=== PATIENT | male | born 1965 | race Caucasian/White ===

== ENCOUNTER 2016-07-21 05:59 | Emergency (ER) | payer OTHER ==
[~2016-07-21] VITALS: Ht 175.3 cm; Wt 97.3 kg
[2016-07-21 06:02] VITALS: TEMP 36.6; Ht 175.3 cm; Wt 97.3 kg
[2016-07-21] MEDS ORDERED: LORAZEPAM 1 MG TAB PO STA (06:38)
[2016-07-21] MEDS ORDERED: HYDROmorphone INJ 2 MG/ML SYR/VIAL IM PRN (06:45)
--- NOTE | 2016-07-21 06:52 | EMERGENCY ROOM VISIT NOTE ---
History Report prepared by Pelon: Sheila Whitman Under the Supervision of: Dr. Christiano Garcia D.O. First contact with patient: 06:20 Chief Complaint: BACK PAIN Stated Complaint: SEVERE BACK PAIN AND SPASMS History of Present Illness The patient is a 51 year old male who presents to the Emergency Room with complaints of constant lower back pain beginning yesterday. The patient states that a tree limb fell down and landed on him. He reports that the tree limb was about 85 pounds and 4 feet long. He complains of groin pain, leg pain, and hip pain. The patient notes that he did not take his medications this morning that include blood pressure medication. He states that he slept in the shower last night and that worsened his symptoms. The patient reports that he has been able to walk. Source of History: patient Onset: yesterday Position: back (lower) Timing: constant Modifying Factors (Worsening): other (sleeping in the shower) Note: Pt complains of hip pain, leg pain, and groin pain. Review of Systems See above for pertinent positives & negatives. A total of 10 systems reviewed and were otherwise negative. Past Medical & Surgical Medical Problems: (1) Hypertension Family History No pertinent family history stated. Social History Smoking Status: Never Smoker Smokeless Tobacco Use: No Alcohol Use: none Drug Use: none Marital Status: Housing Status: lives with significant other Occupation Status: retired Current/Historical Medications Scheduled Amlodipine (Norvasc), 10 MG PO DAILY Ascorbic Acid (Ascorbic Acid), 1,000 MG PO DAILY B-Complex Vitamins (Vitamin B Complex), 1 TAB PO DAILY Chlorthalidone (Chlorthalidone), 1 TAB PO DAILY Cholecalciferol (Vitamin D 1000 Unit), 1,000 INTER.UNIT PO DAILY Glucosamine Sulfate (Glucosamine), 2,000 MG PO DAILY Hydrocodon/Acetaminophen 5MG/300MG (Vicodin (5MG/300MG)), 1-2 TAB PO Q6H Levothyroxine Sodium (Levothyroxine Sodium), 1 TAB PO DAILY Lisinopril (Zestril), 40 MG PO DAILY Naproxen Sodium (Naproxen Sodium), 220 MG PO AMPM Ranitidine (Zantac), 150 MG PO BID Tamsulosin Hcl (Flomax), 0.4 MG PO DAILY Scheduled PRN Diazepam (Valium), 1-2 TAB PO TID PRN for Muscle Spasms Ibuprofen Tab (Motrin), 800 MG PO Q8H PRN for Pain Lidocaine (Lidoderm Patch 5%), 1 PATCH TD QD PRN for Pain Allergies Coded Allergies: Penicillins (Verified Allergy, Severe, shock, 07/21/16) Physical Exam Vital Signs Date Time Temp Pulse Resp B/P Pulse Ox O2 Delivery O2 Flow Rate FiO2 07/21/16 06:02 36.6 73 20 127/73 97 Room Air Physical Exam GENERAL: Patient is well appearing and in pain. HEENT: No acute trauma, normocephalic atraumatic, mucous membranes moist, no nasal congestion, no scleral icterus. NECK: No stridor, no adenopathy, no meningismus, trachea is midline. LUNGS: No dyspnea. Clear to auscultation and equal bilaterally. No wheeze, no rhonchi. HEART: Regular rate and rhythm. No murmurs, rubs, gallops appreciated. ABDOMEN: Soft, nontender, bowel sounds positive, no masses appreciated, no peritonitis. BACK: Ecchymosis to the right lumbar spine. EXTREMITIES: Extensive ecchymosis to the upper thigh and hip. Limited range of motion secondary to pain. NEUROLOGIC: Alert and oriented, no acute motor or sensory deficits, no focal weakness, cranial nerves grossly intact. SKIN: No rash, no jaundice, no diaphoresis. Medical Decision & Procedures ER Provider Diagnostic Interpretation: X ray results and stated below per my interpretation and radiologist interpretation. RIGHT PELVIS/UNILATERAL HIP 2-3VIEWS FINDINGS: No fracture or dislocation within the pelvis or hips. The sacrum appears intact. Soft tissues are unremarkable. IMPRESSION: No fracture or dislocation within the pelvis or hips. Electronically signed by: Kole Cortes M.D. 07/21/2016 7:24 AM Dictated Date/Time: 07/21/2016 7:21 AM LUMBAR SPINE 2 OR 3 VIEWS FINDINGS: There is no pathologic bowel dilatation. No acute fractures or traumatic subluxations are visualized. IMPRESSION: No fractures or subluxations identified. Electronically signed by: Vernon Ramos M.D. 07/21/2016 7:40 AM Dictated Date/Time: 07/21/2016 7:39 AM Laboratory Results Laboratory results as reviewed by me. Medications Administered Medications (Trade) Dose Ordered Sig/Duc Route Start Time Stop Time Status Last Admin Dose Admin Hydromorphone HCl (Dilaudid Inj) 2 mg ONE PRN IM 07/21/16 06:45 08/04/16 06:44 07/21/16 06:48 2 MG Lorazepam (Ativan Tab) 1 mg NOW STAT PO 07/21/16 06:38 07/21/16 06:41 DC 07/21/16 06:47 1 MG ED Course 0631: The patient was evaluated in room B5. A complete history and physical exam was performed. 0638: Ativan Tab 1mg PO. 0645: Dilaudid Inj 2mg PRN IM pain. 0729: Reviewed both of the radiology films and the radiology report. 0802: I reevaluated and updated the patient. He is improved and is in mild to moderate pain. He is nauseous and will receive Zofran and greta joseline before being discharge home. He rates his pain as a 5/10 in severity. 0812: Zofran Odt 4mg PO. 0830: Ondansetron HCl 1 homepack PO. 0832: Reevaluated the patient. Discussed results and discharge instructions: He verbalized understanding and agreement. The patient is ready for discharge. Medical Decision Differential diagnoses include fracture, spasm, strain, sprain. 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 He reports that he slipped in the shower last night and has had exquisite back spasms and back pain preventing his sleep. He drove himself to the emergency room today for further evaluation. He has been ambulating on the lower extremity since the initial injury approximately 3 days ago. Physical exam the patient is kneeling in the room in a position of comfort, he has extensive ecchymoses over the right lateral hip greater trochanter and lower lumbar region. His will be coming to pick him up, he was treated with 2 mg IM Dilaudid, 1 mg Ativan by mouth, lumbar x-rays and hip and pelvis x-rays were obtained to exclude fracture. [place] Drug Monitoring Program Search Results: patient reviewed within database, no issues identified Impression Primary Impression: Strain of lumbar region Additional Impressions: Acute back pain less than 4 weeks duration Acute low back pain due to trauma Scribe Attestation The scribe's documentation has been prepared under my direction and personally reviewed by me in its entirety. I confirm that the note above accurately reflects all work, treatment, procedures, and medical decision making performed by me. Departure Information Dispostion Home / Self-Care Prescriptions Hydrocodon/Acetaminophen 5MG/300MG (VICODIN (5MG/300MG)) 1 Tab Tab 1-2 TAB PO Q6H, #14 TAB Prov: Christiano Garcia D.Byron 07/21/16 Lidocaine (Lidoderm Patch 5%) 1 Ea Tdsy 1 PATCH TD QD Y for Pain, #5 PATCH Prov: Christiano Garcia D.O. 07/21/16 Diazepam (VALIUM) 5 Mg Tab 1-2 TAB PO TID Y for Muscle Spasms, #14 TAB Prov: Christiano Garcia D.OGabriele 07/21/16 Ibuprofen Tab (MOTRIN) 800 Mg Tab 800 MG PO Q8H Y for Pain, #30 TAB Prov: Christiano Garcia D.Byron 07/21/16 Referrals No Doctor, Assigned (PCP) Forms HOME CARE DOCUMENTATION FORM, IMPORTANT VISIT INFORMATION Patient Instructions Back Pain - [facility], Back Safety Bending, My [facility] Additional Instructions Return for pain shooting down into the groin, loss of control of her bowel or bladder, fever or chills, or any other concerns. Follow-up with your primary doctor this week or next if you're not improving. Ice to the area for the first 24 hours (not directly on the skin) 15 minutes on 15 minutes off After 24 hours moist heat and ice alternating are also acceptable. Problem Qualifiers
[2016-07-21] MEDS ORDERED: TAMS0.4C38 PO (06:59)
[2016-07-21] MEDS ORDERED: IBUP-1451 PO (07:14)
[2016-07-21] MEDS ORDERED: DIAZ5TAB3 PO (07:14)
[2016-07-21] MEDS ORDERED: NF656 TD (07:15)
--- NOTE | 2016-07-21 07:25 | DIAGNOSTIC IMAGING REPORT ---
RIGHT PELVIS/UNILATERAL HIP 2-3VIEWS CLINICAL HISTORY: trauma Right. Fall. Right hip pain. COMPARISON STUDY: None. FINDINGS: No fracture or dislocation within the pelvis or hips. The sacrum appears intact. Soft tissues are unremarkable. IMPRESSION: No fracture or dislocation within the pelvis or hips. Electronically signed by: Kole Cortes M.D. 07/21/2016 7:24 AM Dictated Date/Time: 07/21/2016 7:21 AM
--- NOTE | 2016-07-21 07:41 | DIAGNOSTIC IMAGING REPORT ---
LUMBAR SPINE 2 OR 3 VIEWS CLINICAL HISTORY: Back pain status post trauma COMPARISON STUDY: No previous studies for comparison. FINDINGS: There is no pathologic bowel dilatation. No acute fractures or traumatic subluxations are visualized. IMPRESSION: No fractures or subluxations identified. Electronically signed by: Vernon Ramos M.D. 07/21/2016 7:40 AM Dictated Date/Time: 07/21/2016 7:39 AM
[2016-07-21] MEDS ORDERED: HYDR-3419 PO (08:11)
[2016-07-21] MEDS ORDERED: ONDANSETRON 4MG OD TAB PO STA (08:12)
[2016-07-21] MEDS ORDERED: ONDANSETRON HOME PACK 4MG OD TAB PO ONE (08:30)
[2016-07-21 08:36] VITALS: BP 125/76; PULSE 82; O2SAT 98
[2017-01-08] MEDS ORDERED: ZNTT/150 PO (06:58)
[2017-01-08] MEDS ORDERED: LEVO25TA5 PO (06:58)
[2017-01-08] MEDS ORDERED: LISI40TA PO (06:59)
[2017-01-08] MEDS ORDERED: AMLO-114 PO (06:59)
[2017-01-08] MEDS ORDERED: B-COTAB18 PO (07:00)
[2017-01-08] MEDS ORDERED: ASCO100061 PO (07:00)
[2017-01-08] MEDS ORDERED: NAPR1CAP7 PO (07:01)
[2017-01-08] MEDS ORDERED: CHOL100027 PO (07:03)
[2017-01-08] MEDS ORDERED: GLUC10007 PO (07:03)
[2017-01-08] MEDS ORDERED: HYG25 PO (07:04)
== END 2016-07-21 08:33 | disposition home or self-care (01) ==
LOC: C.EDB 06:01
DX: S39.012A Strain of muscle, fascia and tendon of lower back, initial encounter (principal); W22.8XXA Striking against or struck by other objects, initial encounter; I10 Essential (primary) hypertension

== ENCOUNTER 2017-01-08 13:36 | Emergency (ER) | payer OTHER ==
[~2017-01-08] VITALS: Ht 175.3 cm; Wt 97.0 kg
[~2017-01-08 13:36] MED LIST: AMLO-114 PO; ASCO100061 PO; B-COTAB18 PO; CHOL100027 PO; GLUC10007 PO; HYDR-3419 PO; HYG25 PO; IBUP-1451 PO; LEVO25TA5 PO; LISI40TA PO; NAPR1CAP7 PO; NF656 TD; TAMS0.4C38 PO; ZNTT/150 PO
[2017-01-08 13:40] VITALS: TEMP 36.7; Ht 175.3 cm; Wt 97.0 kg
[2017-01-08] MEDS ORDERED: EPINEPHRINE ADULT AUTO-INJECT 0.3 MG SYR IM STA (13:51)
[2017-01-08] MEDS ORDERED: DiphenhydrAMINE HCL 50 MG/ML VIAL IV STA (13:51)
[2017-01-08] MEDS ORDERED: RANITIDINE HCL 50 MG/100 ML D5W IV STA (13:51)
[2017-01-08] MEDS ORDERED: METHYLPREDNISOLONE 125 MG VIAL IV STA (13:51)
--- NOTE | 2017-01-08 13:56 | EMERGENCY ROOM VISIT NOTE ---
History First contact with patient: 13:46 Chief Complaint: ALLERGIC REACTION Stated Complaint: STUNG BY BEES History of Present Illness The patient is a 51 year old male who presents to the Emergency Room with complaints of an allergic reaction to bee stings that occurred approximately 20 minutes prior to arrival. The patient thinks that he was stung by yellow jackets when he accidentally stepped on the nest. He was stung on the right side of his face. 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 He typically carries an EpiPen with him. He did not have the pen with him today. He is currently complaining of severe itching. He denies any difficulty breathing or difficulty swallowing. He denies any dizziness. Review of Systems 10 system review performed and negative unless noted in HPI or below Past Medical/Surgical History Medical Problems: (1) Hypertension Family History Heart disease Social History Smoking Status: Never Smoker Alcohol Use: none Drug Use: none Marital Status: Housing Status: lives with significant other Occupation Status: retired Current/Historical Medications Scheduled Amlodipine (Norvasc), 10 MG PO DAILY Ascorbic Acid (Ascorbic Acid), 1,000 MG PO DAILY B-Complex Vitamins (Vitamin B Complex), 1 TAB PO DAILY Chlorthalidone (Chlorthalidone), 1 TAB PO DAILY Cholecalciferol (Vitamin D 1000 Unit), 1,000 INTER.UNIT PO DAILY Epinephrine (Epipen 2-Elvin), 1 DOSE IM DAILY Glucosamine Sulfate (Glucosamine), 2,000 MG PO DAILY Levothyroxine Sodium (Levothyroxine Sodium), 1 TAB PO DAILY Lisinopril (Zestril), 40 MG PO DAILY Naproxen Sodium (Naproxen Sodium), 220 MG PO AMPM Prednisone (Prednisone), 50 MG PO DAILY Ranitidine (Zantac), 150 MG PO BID Physical Exam Vital Signs Date Time Temp Pulse Resp B/P (MAP) Pulse Ox O2 Delivery O2 Flow Rate FiO2 01/08/17 17:20 87 18 166/95 98 Room Air 01/08/17 16:29 96 20 125/66 95 Room Air 01/08/17 14:38 109 16 95 Room Air 01/08/17 14:12 113 01/08/17 14:08 97 Room Air 01/08/17 13:40 36.7 112 20 140/85 95 Room Air Physical Exam VITALS: Vitals are noted on the nurse's note and reviewed by myself. Vital signs stable. GENERAL: 51-year-old male, in no acute distress, nondiaphoretic, well-developed well-nourished. SKIN: The skin was warm and dry HEAD: Slight area of facial swelling anterior to the right ear. A few small areas of erythema noted. No other rashes EARS: External auditory canals clear, tympanic membranes pearly estrada without erythema or effusion bilaterally. EYES: Conjunctivae without injection, sclerae without icterus. Extraocular movements intact. NOSE: Patent, turbinates without inflammation or discharge. No sinus tenderness. MOUTH: Mucous membranes moist. No swelling of the oropharynx Tonsils are not enlarged. Pharynx without erythema or exudate. Uvula midline. Airway patent. Tongue does not deviate. NECK: Supple without nuchal rigidity. No lymphadenopathy. Cervical spine is nontender. No JVD. HEART: Tachycardic, regular rhythm without murmurs gallops or rubs. LUNGS: Clear to auscultation bilaterally without wheezes, rales or rhonchi. No accessory muscle use. ABDOMEN: Positive bowel sounds x 4.Soft, nontender, without organomegaly. No guarding or rebound tenderness. MUSCULOSKELETAL: No muscle atrophy, erythema, or edema noted. Strength 5/5 throughout. NEURO: Patient was alert and oriented to person place and time. Normal sensation to touch. No focal neurological deficits. Medical Decision & Procedures Medications Administered Medications (Trade) Dose Ordered Sig/Duc Route Start Time Stop Time Status Last Admin Dose Admin Epinephrine (Epipen) 0.3 mg NOW STAT IM 01/08/17 13:51 01/08/17 13:53 DC 01/08/17 14:03 0.3 MG Diphenhydramine HCl (Benadryl Inj) 50 mg NOW STAT IV 01/08/17 13:51 01/08/17 13:53 DC 01/08/17 14:03 50 MG Sodium Chloride 1,000 ml @ 999 mls/hr Q1H1M ONCE IV 01/08/17 14:00 01/08/17 15:00 DC 01/08/17 14:08 999 MLS/HR Ranitidine HCl (zANTac IV) 50 mg NOW STAT IV 01/08/17 13:51 01/08/17 13:53 DC 01/08/17 14:08 50 MG Methylprednisolone Sodium Succinate (Solu-Medrol IV) 125 mg NOW STAT IV 01/08/17 13:51 01/08/17 13:53 DC 01/08/17 14:03 125 MG Ondansetron HCl (Zofran Inj) 4 mg NOW STAT IV 01/08/17 14:14 01/08/17 14:15 DC 01/08/17 14:30 4 MG Acetaminophen (Tylenol Tab) 1,000 mg NOW STAT PO 01/08/17 14:14 01/08/17 14:15 DC 01/08/17 14:30 1,000 MG ED Course Patient was seen and examined Vital signs including blood pressure were reviewed medications list was verified with patient Labs were obtained, and a saline lock was established The patient was put on a monitor. The patient was given Benadryl 50 mg IV, Zantac 50 mg IV, Solu-Medrol 125 g IV. He was also given an IM injection of an EpiPen 0.3 mg. He was hydrated with normal saline 1 L bolus. The patient was observed in the emergency department for approximately 4 hours. His symptoms such as itching improved. The patient was given a prescription for an EpiPen I reviewed discharge instructions the patient. They voiced understanding and had no further questions. Medical Decision Differential diagnosis: Allergic reaction, anaphylaxis, angioedema, insect sting This patient is a 51-year-old male that presents emergency department with complaints of a bee sting that occurred prior to arrival. The patient has had an anaphylactic reaction with "closing of his throat" in the past. He did not take his EpiPen as he did not have it with him. In the emergency department, the patient had slight swelling of the area of the sting. Otherwise, his exam was unremarkable. His vital signs were stable. Given the severity of his reaction the past, he was given an EpiPen injection here in addition to Benadryl , Zantac, Solu-Medrol and fluids. He was monitored for 4 hours in the emergency department with no worsening of his symptoms. The itching improved. The patient was instructed to take Benadryl for the next 24 hours. He was given a prescription for prednisone in addition to a refill on his EpiPen. He was discharged in good condition. Blood Pressure Screening Blood pressure disposition: Elevated BP felt to be situational Impression Primary Impression: Allergic reaction Additional Impression: Bee sting reaction Departure Information Dispostion Home / Self-Care Condition GOOD Prescriptions Prednisone (PREDNISONE) 50 Mg Tab 50 MG PO DAILY for 4 Days, #44 TAB Prov: Norah Garcia PA-C 01/08/17 Epinephrine (EPIPEN 2-ELVIN) 0.3 Mg Inj 1 DOSE IM DAILY for ALLERGIC REACTION, #1 PKT Prov: Norah Garcia PA-C 01/08/17 Referrals Sunita Wei PA-C (PCP) Patient Instructions ED Bite Sting Insect Gen Allergic React, My [facility] Additional Instructions You were treated in the emergency department today for an allergic reaction to a bee sting. Please continue to take Benadryl 25 mg every 8 hours for the next 24 hours. Next dose will be at approximately 10 PM tonight Please take entire course of steroids Please avoid getting overheated as this will make the itching worse Please carry the EpiPen with you at all times. These follow up with your primary care physician for a recheck within the next 1 -2 weeks Please return to the emergency department with any new symptoms such as: -Difficulty breathing or swallowing -Severe dizziness -Swelling of the face Problem Qualifiers
[2017-01-08] MEDS ORDERED: SODIUM CHLORIDE 0.9% 1000ML 1,000 ML IV ONE (14:00)
[2017-01-08] MEDS ORDERED: ACETAMINOPHEN 500 MG TAB PO STA (14:14)
[2017-01-08] MEDS ORDERED: ONDANSETRON INJ 2 MG/ML 2 ML VIAL IV STA (14:14)
[2017-01-08] MEDS ORDERED: EPP3/2 IM (16:11)
[2017-01-08] MEDS ORDERED: PRED50TA PO (16:11)
[2017-01-08 17:20] VITALS: BP 166/95; PULSE 87; O2SAT 98
== END 2017-01-08 17:30 | disposition home or self-care (01) ==
LOC: C.EDB 13:37
DX: T63.441A Toxic effect of venom of bees, accidental (unintentional), initial encounter (principal); I10 Essential (primary) hypertension; Z79.899 Other long term (current) drug therapy

== ENCOUNTER 2017-02-05 04:18 | Emergency (ER) | payer OTHER ==
[~2017-02-05] VITALS: Ht 175.3 cm; Wt 96.4 kg
[~2017-02-05 04:18] MED LIST changes: +EPP3/2 IM; -HYDR-3419 PO; -IBUP-1451 PO; -NF656 TD; -TAMS0.4C38 PO
[2017-02-05 04:20] VITALS: TEMP 36.9; Ht 175.3 cm; Wt 96.4 kg
[2017-02-05] MEDS ORDERED: TRAM-10 PO (04:38)
[2017-02-05] MEDS ORDERED: ACET-749 PO (05:40)
[2017-02-05] MEDS ORDERED: BCTROWC EXT (05:40)
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
[2017-02-05] MEDS ORDERED: BACITRACIN OINT 15 GM TUBE EXT ONE (05:45)
[2017-02-05 05:54] VITALS: BP 121/83; PULSE 79; O2SAT 97
== END 2017-02-05 06:01 | disposition home or self-care (01) ==
LOC: C.EDB 04:20 → C.EDA 06:01
DX: T21.02XA Burn of unspecified degree of abdominal wall, initial encounter (principal); X12.XXXA Contact with other hot fluids, initial encounter; Y93.89 Activity, other specified; Y99.8 Other external cause status; I10 Essential (primary) hypertension; E03.9 Hypothyroidism, unspecified; Z79.899 Other long term (current) drug therapy

== ENCOUNTER 2017-02-07 18:09 | Emergency (ER) | payer OTHER ==
[~2017-02-07] VITALS: Ht 175.3 cm; Wt 95.5 kg
[~2017-02-07 18:09] MED LIST changes: +ACET-749 PO; +BCTROWC EXT; +TRAM-10 PO
[2017-02-07 18:13] VITALS: TEMP 36.9; Ht 175.3 cm; Wt 95.5 kg
[2017-02-07] MEDS ORDERED: TRAMADOL HCL 50 MG TAB PO STA (18:47)
[2017-02-07] MEDS ORDERED: IBUPROFEN 200 MG TAB PO STA (18:47)
[2017-02-07] MEDS ORDERED: ACETAMINOPHEN 500 MG TAB PO STA (18:47)
[2017-02-07] MEDS ORDERED: MoRPHine SULFATE 4 MG/ML 1 ML CARP\\VIAL IM STA (18:47)
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
[2017-02-07 19:20] LABS: BASO % 0.5 %; BASO ABS # 0.03 K/uL (0-0.2); COMPLETE YES; HEMATOCRIT 43.2 % (42-52); IG% 0.2 %; LYMPH % 30.9 %; LYMPH ABS # 1.87 K/uL (1.2-3.4); MEAN CELL VOLUME 89.8 fL (80-100); MEAN CORPUSCULAR HEMOGLOBIN 32.8 pg (25-34); MEAN CORPUSCULAR HGB CONC 36.6 g/dl (32-36); MEAN PLATELET VOLUME 10.2 fL (7.4-10.4); MONO % 8.9 %; NEUT % 55.5 %; PLATELET COUNT 234 K/uL (130-400); RED BLOOD COUNT 4.81 M/uL (4.7-6.1); WHITE BLOOD COUNT 6.05 K/uL (4.8-10.8)
[2017-02-07 19:48] LABS: BUN/CREATININE RATIO 20.3 (10-20); CREATININE 1.3 mg/dl (0.60-1.40); POTASSIUM 3.2 mmol/L (3.5-5.1)
[2017-02-07] MEDS ORDERED: OXYC1TAB3 PO ×2 (20:29→20:30)
[2017-02-07] MEDS ORDERED: TRAM-10 PO (20:31)
[2017-02-07] MEDS ORDERED: SILV1CRE73 TOP (20:43)
[2017-02-07] MEDS ORDERED: TRAMADOL HCL 50 MG HOME PACK PO ONE (20:45)
[2017-02-07] MEDS ORDERED: NORCO 5/325MG HOME PACK PO ONE (20:45)
[2017-02-07 20:51] VITALS: BP 138/89; PULSE 82; O2SAT 97
== END 2017-02-07 20:51 | disposition home or self-care (01) ==
LOC: C.EDB 18:10
DX: T21.22XA Burn of second degree of abdominal wall, initial encounter (principal); X11.8XXA Contact with other hot tap-water, initial encounter; Y92.833 Campsite as the place of occurrence of the external cause; I10 Essential (primary) hypertension; Z79.899 Other long term (current) drug therapy

== ENCOUNTER 2017-02-26 23:00 | Inpatient (IN) | payer OTHER ==
[~2017-02-26] VITALS: Ht 175.3 cm; Wt 97.7 kg
[~2017-02-26 23:00] MED LIST changes: +OXYC1TAB3 PO
[2017-02-26] MEDS ORDERED: DiphenhydrAMINE HCL 50 MG/ML VIAL ONE (23:09)
[2017-02-26] MEDS ORDERED: METHYLPREDNISOLONE 125 MG VIAL ONE (23:09)
[2017-02-26] MEDS ORDERED: RANITIDINE HCL 50 MG/100 ML D5W ONE (23:10)
[2017-02-26] MEDS ORDERED: EPINEPHRINE ADULT AUTO-INJECT 0.3 MG SYR ONE (23:11)
[2017-02-27] VITALS (20 sets, daily range): BP systolic 112–144; BP diastolic 62–95; PULSE 86–114; TEMP 36.5–36.8; O2SAT 93–97; Ht 175.3 cm; Wt 97.7 kg
[2017-02-27 00:48] LABS: BASO % 0.7 %; BASO ABS # 0.06 K/uL (0-0.2); COMPLETE YES; EOS % 5.8 %; HEMATOCRIT 45.3 % (42-52); IG% 0.1 %; LYMPH % 45.3 %; LYMPH ABS # 3.69 K/uL (1.2-3.4); MEAN CELL VOLUME 89.2 fL (80-100); MEAN CORPUSCULAR HEMOGLOBIN 30.3 pg (25-34); MEAN PLATELET VOLUME 10.7 fL (7.4-10.4); MONO % 7.6 %; NEUT % 40.5 %; PLATELET COUNT 294 K/uL (130-400); RED BLOOD COUNT 5.08 M/uL (4.7-6.1); WHITE BLOOD COUNT 8.14 K/uL (4.8-10.8)
[2017-02-27] MEDS ORDERED: SODIUM CHLORIDE 0.9% 1000ML 1,000 ML IV SCH (01:02)
[2017-02-27 01:06] LABS: BLOOD UREA NITROGEN 24 mg/dl (7-18); BUN/CREATININE RATIO 18.3 (10-20); CALCIUM 8.8 mg/dl (8.5-10.1); CARBON DIOXIDE 30 mmol/L (21-32); CHLORIDE 99 mmol/L (98-107); GLUCOSE 95 mg/dl (70-99); POTASSIUM 3.2 mmol/L (3.5-5.1); SODIUM 137 mmol/L (136-145)
[2017-02-27] MEDS ORDERED: LEVALBUTEROL 0.63MG/3 ML NEB INH PRN (01:15)
[2017-02-27] MEDS ORDERED: ACETAMINOPHEN IV 650 MG in EMPTY BAG 0 ML IV PRN (01:30)
[2017-02-27] MEDS ORDERED: ONDANSETRON INJ 2 MG/ML 2 ML VIAL IV PRN (01:30)
[2017-02-27] MEDS ORDERED: POTASSIUM CHLORIDE 10 MEQ / 100ML WTR IV ONE (01:33)
--- NOTE | 2017-02-27 01:33 | History and Physical ---
History & Physical Date & Time of Service: Feb 27, 2017 at 01:33 Chief Complaint: Difficulty Breathing, Cough Primary Care Physician: Sunita Wei PA-C History of Present Illness Source: patient, family Patient is a 51 yr male with PMH of HTN, Hypothyroidism presents with history of lip swelling, SOB and dysphagia which started few hours prior to ED visit. Patient is currently distressed and is a very poor historian and most of the history is obtained from patient's family, old records and ED staff. Patient started to notice upper lip swelling few hours ago and ate cheese steak and went to bed and later woke up with swelling of lower lip, difficulty breathing and had trouble swallowing. Patient s on lisinopril for HTN. He received Epinephrine, Benadryl, solumedrol and ranitidine in ED. Currently he denies chest pain, SOB and is saturating 96% on 2L NC. Family denies any history of similar symptoms in the past or any fever, chills, nausea, vomiting, abd pain, diarrhea, dysuria, rash. He had history of allergy to bee stings and Penicillin , but denies any recent exposure. Past Medical/Surgical History Medical Problems: (1) Hypertension Status: Chronic Family History Patient reports no known family medical history. Could not be obtained Social History Smoking Status: Never Smoker Alcohol Use: none Drug Use: none Marital Status: Occupational Status: retired Allergies Coded Allergies: Penicillins (Verified Allergy, Severe, shock, 01/08/17) Lisinopril (Verified Allergy, Intermediate, ANGIOEDEMA, 02/27/17) Home Medications Scheduled Amlodipine (Norvasc), 10 MG PO DAILY Ascorbic Acid (Ascorbic Acid), 1,000 MG PO DAILY B-Complex Vitamins (Vitamin B Complex), 1 TAB PO DAILY Chlorthalidone (Chlorthalidone), 1 TAB PO DAILY Cholecalciferol (Vitamin D 1000 Unit), 1,000 INTER.UNIT PO DAILY Glucosamine Sulfate (Glucosamine), 2,000 MG PO DAILY Levothyroxine Sodium (Levothyroxine Sodium), 25 MCG PO DAILY Lisinopril (Zestril), 40 MG PO DAILY Mupirocin (Bactroban 2% Oint), 1 APPLN EXT BID Naproxen Sodium (Naproxen Sodium), 220 MG PO AMPM Ranitidine (Zantac), 150 MG PO BID Scheduled PRN Acetaminophen/Codeine (Tylenol W/Codeine #3), 1-2 TABS PO Q6H PRN for Pain Tramadol (Ultram), 50 MG PO Q8H PRN for Pain Review of Systems Complete review of systems could not be obtained as patient is in distress and is a very poor historian Physical Exam Vital Signs Date Time Temp Pulse Resp B/P (MAP) Pulse Ox O2 Delivery O2 Flow Rate FiO2 02/27/17 00:30 58 20 110/71 96 Nasal Cannula 2.0 02/27/17 00:00 84 20 123/70 95 Nasal Cannula 2.0 02/26/17 23:30 97 22 140/97 99 Nasal Cannula 2.0 02/26/17 23:16 89 16 140/97 97 Room Air 02/26/17 23:06 97 Room Air General Appearance: WD/WN, + mild distress Head: normocephalic, atraumatic, + pertinent finding (Edema of face and upper lip. ) Eyes: normal inspection, PERRL, EOMI ENT: normal ENT inspection, hearing grossly normal Neck: supple, trachea midline Respiratory/Chest: lungs clear, normal breath sounds, no accessory muscle use Cardiovascular: regular rate, rhythm, no edema, no murmur Abdomen/GI: normal bowel sounds, non tender, soft Back: normal inspection Extremities/Musculoskelatal: normal inspection, no pedal edema Neurologic/Psych: alert, oriented x 3, + pertinent finding (Anxious, distressed , grossly no focal deficits) Skin: normal color, warm/dry Diagnostics Laboratory Results Results Past 24 Hours Test 02/26/17 23:16 Range/Units White Blood Count 8.14 4.8-10.8 K/uL Red Blood Count 5.08 4.7-6.1 M/uL Hemoglobin 15.4 14.0-18.0 g/dL Hematocrit 45.3 42-52 % Mean Corpuscular Volume 89.2 80-100 fL Mean Corpuscular Hemoglobin 30.3 25-34 pg Mean Corpuscular Hemoglobin Concent 34.0 32-36 g/dl Platelet Count 294 130-400 K/uL Mean Platelet Volume 10.7 7.4-10.4 fL Neutrophils (%) (Auto) 40.5 % Lymphocytes (%) (Auto) 45.3 % Monocytes (%) (Auto) 7.6 % Eosinophils (%) (Auto) 5.8 % Basophils (%) (Auto) 0.7 % Neutrophils # (Auto) 3.29 1.4-6.5 K/uL Lymphocytes # (Auto) 3.69 1.2-3.4 K/uL Monocytes # (Auto) 0.62 0.11-0.59 K/uL Eosinophils # (Auto) 0.47 0-0.5 K/uL Basophils # (Auto) 0.06 0-0.2 K/uL RDW Standard Deviation 41.6 36.4-46.3 fL RDW Coefficient of Variation 12.9 11.5-14.5 % Immature Granulocyte % (Auto) 0.1 % Immature Granulocyte # (Auto) 0.01 0.00-0.02 K/uL Sodium Level 137 136-145 mmol/L Potassium Level 3.2 3.5-5.1 mmol/L Chloride Level 99 98-107 mmol/L Carbon Dioxide Level 30 21-32 mmol/L Anion Gap 8.0 3-11 mmol/L Blood Urea Nitrogen 24 7-18 mg/dl Creatinine 1.30 0.60-1.40 mg/dl Estimated GFR () 74.3 Estimated GFR (Non- 64.1 BUN/Creatinine Ratio 18.3 10-20 Random Glucose 95 70-99 mg/dl Calcium Level 8.8 8.5-10.1 mg/dl Impression Assessment and Plan Angioedema/Anaphylaxis: Likely secondary to Lisinopril Admit in ICU Received Benadryl, Ranitidine, Epinephrine and Solumedrol in ED Close monitoring in ICU for possible need for Intubation Lisinopril discontinued Oxygen support PRN NPO for now Speech and swallow eval when able IV fluids Further management per ICU team ICU Lunch Cook consulted Hypokalemia: Was on Chlorthalidone replace and monitor Check Mag levels Hypertension; Relative hypotensive currently Hold HTN meds monitor Hypothyroidism: Continue Levothyroxine Check TSH, free T4 DVT Px: Heparin SQ Code Status; Full Code Disposition: Monitor in ICU VTE Prophylaxis VTE Risk Assessment Done? Y/N: Yes Risk Level: Low
[2017-02-27] MEDS ORDERED: LORAZEPAM 2 MG/ML 1 ML VIAL IV STA (01:55)
[2017-02-27] MEDS: POTASSIUM CHLR 10 MEQ / WTR 10 MEQ in PREMIXED WATER 100 ML IV SCH ×3 (02:51→05:35)
[2017-02-27] MEDS ORDERED: LORAZEPAM 2 MG/ML 1 ML VIAL IV PRN (03:00)
[2017-02-27] MEDS ORDERED: DiphenhydrAMINE INJ 50 MG in SYRINGE 0 ML IV PRN (03:00)
--- NOTE | 2017-02-27 03:10 | Critical Care Consultation ---
Critical Care Consultation Date of Consultation: Feb 27, 2017. Attending Physician: Dr. Garcia Reason for Consultation: Angioedema with concerns for airway compromise. History of Present Illness Patient is a 51-year-old male admitted to the ICU secondary to concerns for acute angioedema and airway compromise. Patient was enjoying his typical state of health until this afternoon at approximately 5:40 PM when he noticed irritation and a "weird" sensation to the upper lip. 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 He complained about worsening swelling to the upper lip, however he laid down to sleep for night. He awoke approximately 10:30 and sent a picture of his upper lip and facial swelling to his daughter who promptly picked up the patient and brought him immediately to the emergency department for further evaluation and management. On initial presentation, per ED provider, the patient had significant facial swelling and upper lip swelling. He was having some concerns for possible airway compromise with gargling. He maintained O2 saturations throughout his stay. He was treated immediately with intramuscular epinephrine as well as Benadryl and Solu-Medrol intravenously. There was reported moderate improvement of facial swelling and breathing. Patient reportedly feels much better at this time. The patient reports no new foods or medications. He has taken lisinopril and hydrochlorothiazide for the past 3 years. There is been no recent change in doses. He also takes naproxen for osteoarthritis. He has had no previous similar reactions in the past. He is allergic to bee stings, however was uncertain as to the extent. Patient is also allergic to penicillin. Patient offers no other complaint this time. He is drowsy and reports feeling very tired. He urinated at bedside using a urinal. Past Medical/Surgical History Medical Problems: (2) Hypertension (3) Hypothyroidism Family History Patient reports no known family medical history. noncontributory Social History Smoking Status: Never Smoker Smokeless Tobacco Use: No Alcohol Use: none Drug Use: none Marital Status: Housing Status: lives with significant other Occupation Status: retired Allergies Coded Allergies: Penicillins (Verified Allergy, Severe, shock, 01/08/17) Lisinopril (Verified Allergy, Intermediate, ANGIOEDEMA, 02/27/17) Home Medications Scheduled Amlodipine (Norvasc), 10 MG PO DAILY Ascorbic Acid (Ascorbic Acid), 1,000 MG PO DAILY B-Complex Vitamins (Vitamin B Complex), 1 TAB PO DAILY Chlorthalidone (Chlorthalidone), 1 TAB PO DAILY Cholecalciferol (Vitamin D 1000 Unit), 1,000 INTER.UNIT PO DAILY Glucosamine Sulfate (Glucosamine), 2,000 MG PO DAILY Levothyroxine Sodium (Levothyroxine Sodium), 25 MCG PO DAILY Mupirocin (Bactroban 2% Oint), 1 APPLN EXT BID Prednisone (Prednisone), 1 TAB PO DAILY Ranitidine (Zantac), 150 MG PO BID Scheduled PRN Acetaminophen/Codeine (Tylenol W/Codeine #3), 1-2 TABS PO Q6H PRN for Pain Tramadol (Ultram), 50 MG PO Q8H PRN for Pain Current Inpatient Medications Current Inpatient Medications Medications (Trade) Dose Ordered Sig/Duc Route Start Time Stop Time Status Last Admin Dose Admin Heparin Sodium (Porcine) (Heparin Sq 5000 Unit/0.5ml) 5,000 unit Q8H SQ 02/27/17 01:15 03/29/17 01:14 UNV Sodium Chloride 1,000 ml @ 80 mls/hr [id number] IV 02/27/17 01:02 03/29/17 01:01 UNV Levalbuterol (Xopenex 0.63 Mg/ 3 Ml Neb) 0.63 mg Q4H PRN INH 02/27/17 01:15 03/29/17 01:14 UNV Ondansetron HCl (Zofran Inj) 4 mg Q6H PRN IV 02/27/17 01:30 03/29/17 01:29 UNV Acetaminophen 650 mg/Empty Bag 65 ml @ 260 mls/hr Q6H PRN IV 02/27/17 01:30 03/29/17 01:29 UNV Potassium Chloride 40 meq/ Prmx 100 ml @ 100 mls/hr Q1H ONCE IV 02/27/17 01:30 02/27/17 02:29 UNV Levothyroxine Sodium 12.5 mcg/ Syringe 0.625 ml @ 0.313 mls/ min DAILY@09 IV 02/27/17 09:00 03/29/17 08:59 Lorazepam (Ativan Inj) 1 mg NOW STAT IV 02/27/17 01:55 02/27/17 01:56 UNV Review of Systems A complete 10-point Review of Systems was discussed with the patient, with pertinent positives and negatives listed in the History of Present Illness. All remaining Review of Systems questions can be considered negative unless otherwise specified. Physical Exam Date Time Temp Pulse Resp B/P (MAP) Pulse Ox O2 Delivery O2 Flow Rate FiO2 02/27/17 01:22 82 18 93/58 96 Nasal Cannula 2.0 02/27/17 00:30 58 20 110/71 96 Nasal Cannula 2.0 02/27/17 00:00 84 20 123/70 95 Nasal Cannula 2.0 02/26/17 23:30 97 22 140/97 99 Nasal Cannula 2.0 02/26/17 23:16 89 16 140/97 97 Room Air 02/26/17 23:06 97 Room Air VITAL SIGNS - Vital signs and nursing notes were reviewed. GENERAL - 51-year-old male appearing his stated age. Communicates well with provider and answers questions appropriately. SKIN - Gross examination of the entire body surface demonstrates angioedema to the upper lip and face area. HEAD - Normocephalic. EYES - PERRL with EOMI bilaterally. Without periorbital edema. Without subconjunctival hemorrhage. Palpebral conjunctiva pink and moist with no injection. EARS - No deformities of external structures noted on gross examination bilaterally. No hemotympanum present. No tympanic perforation noted. Handle of malleus, umbo, cone of light, pars tensa/flaccid all easily visualized. NOSE - Midline and without cyanosis. No epistaxis or clear watery discharge noted. Septum midline without deviation. No septal hematoma noted. No overlying ecchymosis noted. MOUTH/OROPHARYNX - Without perioral cyanosis. Angioedema appreciated as above. Tongue midline with equal elevation of palate bilaterally. No blood noted in the oropharynx. No tonsillar hypertrophy, erythema, or exudates noted. NECK - Supple to palpation. No JVD noted. LUNGS - Chest wall symmetric without accessory muscle use, intercostals retractions, or central cyanosis. Without stridor. No active wheezes. Normal vesicular breath sounds CTA B/L. No rales or rhonchi appreciated. CARDIAC - RRR with S1/S2. No murmur, rubs, or gallops appreciated. ABDOMEN - Abdominal contour obese without pulsations or visible masses. BS normoactive all four quadrants. No rebound tenderness or guarding noted. No tenderness, palpable masses, hepatosplenomegaly, or ascites noted. EXTREMITIES - No gross deformities noted of the extremities. +5/5 strength noted in UE/LE bilaterally. NEUROLOGIC - Cranial nerves II through XII grossly intact. Sensory intact to light touch throughout. PSYCH - A&Ox3 and cooperates fully with examiner. Pt is very pleasant and interacts well with examiner. Laboratory Results Last 24 Hours Test 02/26/17 23:16 White Blood Count 8.14 K/uL Red Blood Count 5.08 M/uL Hemoglobin 15.4 g/dL Hematocrit 45.3 % Mean Corpuscular Volume 89.2 fL Mean Corpuscular Hemoglobin 30.3 pg Mean Corpuscular Hemoglobin Concent 34.0 g/dl Platelet Count 294 K/uL Mean Platelet Volume 10.7 fL Neutrophils (%) (Auto) 40.5 % Lymphocytes (%) (Auto) 45.3 % Monocytes (%) (Auto) 7.6 % Eosinophils (%) (Auto) 5.8 % Basophils (%) (Auto) 0.7 % Neutrophils # (Auto) 3.29 K/uL Lymphocytes # (Auto) 3.69 K/uL Monocytes # (Auto) 0.62 K/uL Eosinophils # (Auto) 0.47 K/uL Basophils # (Auto) 0.06 K/uL RDW Standard Deviation 41.6 fL RDW Coefficient of Variation 12.9 % Immature Granulocyte % (Auto) 0.1 % Immature Granulocyte # (Auto) 0.01 K/uL Sodium Level 137 mmol/L Potassium Level 3.2 mmol/L Chloride Level 99 mmol/L Carbon Dioxide Level 30 mmol/L Anion Gap 8.0 mmol/L Blood Urea Nitrogen 24 mg/dl Creatinine 1.30 mg/dl Estimated GFR () 74.3 Estimated GFR (Non- 64.1 BUN/Creatinine Ratio 18.3 Random Glucose 95 mg/dl Calcium Level 8.8 mg/dl Assessment & Plan (1) Hypothyroidism (2) Angioedema (3) Hypertension (4) Lip swelling Reason Critically Ill: 51-year-old male with acute angioedema to the upper lip with concerns for airway compromise requiring close airway monitoring. Neuro - * CAM ICU: NEGATIVE Cardiac - * h/o HTN. * Will discontinue Lisinopril in the setting of Angioedema. * Continue Amlodipine in the AM if s/s improving. * Monitor on telemetry. * EKG for any Chest Pain. Respiratory - * Angioedema to the upper lip. * Patient with concern for airway compromise on initial presentation. Interestingly, the patient did have improvement of symptoms with IV Solu-Medrol , Zantac, Benadryl, and IM epinephrine. * Will continue with IV Solu-Medrol, Zantac, and Benadryl. * Monitor closely for any changes in symptoms or rebounding. * Patient's symptoms likely secondary to lisinopril use as no other new exposures were experienced throughout the day. Will hold naproxen and other anti-inflammatories as well for possibility of contributing to the angioedema as well. * Xopenex PRN wheezing. * No h/o pulmonary disease otherwise. * Will monitor continuous pulse oximetry. GI - * GERD - IV Zantac. * Will keep NPO overnight. * Return to full diet if s/s improving. RENAL/LYTES - * NSS @ 80 mL/hr. Will continue while NPO overnight. Transition to PO intake only. * Hypokalemia - 3.2. * Receiving 40 mEq of KCl IV per admitting team. * Will recheck PRP in AM. * Add PO replacement when symptoms have improved. - * No issues. ENDO - * h/o Hypothyroidism on Levothyroxine - continue outpt tx HEME - * Stable H&H. * Monitor with Daily CBC ID - * No concerns at this time. * Monitor fever curve. LINES/IV ACCESS - * PIVs intact. DVT PROPHYLAXIS - * Heparin sq per admitting team. * Will encourage early ambulation in AM I have personally spent 45 minutes of critical care time in the direct management of this patient. This is a life/limb threatening event. This includes time spent evaluating patient, direct bedside care, chart review, placing orders, interpretation of diagnostic studies, discussion with consultants, patient, and family members, as well as other required patient management activities. This time is exclusive of all separately billable procedures, and teaching time and separate from and in addition to any other critical care service time. Thank you for this consultation allow us to be part of this patient's care. Please refer to my attending physician's documentation for any further recommendations. I have personally evaluated and examined this patient. I agree with assessment and plan of Richmond Ford PA-C. I saw the patient in the emergency department with Richmond Ford. Patient still had significant angioedema of the upper lip in its entirety, however I was able to see the pictures from the patient's daughter and there was noticeable improvement. The patient still would have a critical airway, from the pictures I would have likely emergently intubated the patient had he arrived in that state, in speaking with the emergency department physician his initial presentation there was already improvement from what it was compared to these initial pictures. Problem Qualifiers (1) Angioedema: Encounter type: initial encounter Qualified Codes: T78.3XXA - Angioneurotic edema, initial encounter
[2017-02-27] MEDS ORDERED: DiphenhydrAMINE HCL 50 MG/ML VIAL IV PRN (03:30)
--- NOTE | 2017-02-27 03:39 | EMERGENCY ROOM VISIT NOTE ---
History Report prepared by Pelon: Paty Jensen Under the Supervision of: Dr. Ofelia Sweet D.O. First contact with patient: 23:06 Chief Complaint: ALLERGIC REACTION Stated Complaint: DIFFICULTY BREATHING, COUGH History of Present Illness The patient is a 51 year old male who presents to the Emergency Room with complaints of an episode of an allergic reaction starting five hours ago. 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 He states that he ate a cheese steak and went to bed. He reports that when he woke up two hours ago he noticed the swelling had moved into his lower lip and he was struggling to breathe. He states that he is having difficulty swallowing and in return is making him cough. He reports that he has no idea what this is from. He states that he is allergic to bee stings and Penicillin, but has not been exposed to either of them. The patient notes he does take Lisinopril. He denies any abdominal pain and taking any Benadryl at home. He notes that he thought this was all because he ate a spider or something. Source of History: patient Onset: five hours ago Position: other (global) Quality: other (swelling) Timing: other (episode) Associated Symptoms: + cough, + SOB, No abdominal pain Note: The patient complains of difficulty swallowing and swelling to his face. Review of Systems See HPI for pertinent positives & negatives. A total of 10 systems reviewed and were otherwise negative. Past Medical & Surgical Medical Problems: (1) Angioedema (2) Hypertension (3) Lip swelling Family History Patient reports no known family medical history. Social History Smoking Status: Never Smoker Alcohol Use: none Drug Use: none Marital Status: Housing Status: lives with significant other Occupation Status: retired Current/Historical Medications Scheduled Amlodipine (Norvasc), 10 MG PO DAILY Ascorbic Acid (Ascorbic Acid), 1,000 MG PO DAILY B-Complex Vitamins (Vitamin B Complex), 1 TAB PO DAILY Chlorthalidone (Chlorthalidone), 1 TAB PO DAILY Cholecalciferol (Vitamin D 1000 Unit), 1,000 INTER.UNIT PO DAILY Glucosamine Sulfate (Glucosamine), 2,000 MG PO DAILY Levothyroxine Sodium (Levothyroxine Sodium), 25 MCG PO DAILY Lisinopril (Zestril), 40 MG PO DAILY Mupirocin (Bactroban 2% Oint), 1 APPLN EXT BID Naproxen Sodium (Naproxen Sodium), 220 MG PO AMPM Ranitidine (Zantac), 150 MG PO BID Scheduled PRN Acetaminophen/Codeine (Tylenol W/Codeine #3), 1-2 TABS PO Q6H PRN for Pain Tramadol (Ultram), 50 MG PO Q8H PRN for Pain Allergies Coded Allergies: Penicillins (Verified Allergy, Severe, shock, 01/08/17) Lisinopril (Verified Allergy, Intermediate, ANGIOEDEMA, 02/27/17) Physical Exam Vital Signs Date Time Temp Pulse Resp B/P (MAP) Pulse Ox O2 Delivery O2 Flow Rate FiO2 02/27/17 01:22 82 18 93/58 96 Nasal Cannula 2.0 02/27/17 00:30 58 20 110/71 96 Nasal Cannula 2.0 02/27/17 00:00 84 20 123/70 95 Nasal Cannula 2.0 02/26/17 23:30 97 22 140/97 99 Nasal Cannula 2.0 02/26/17 23:16 89 16 140/97 97 Room Air 02/26/17 23:06 97 Room Air Physical Exam General: Moderate difficulty breathing, coughing, gagging at times. HEENT: Head - normocephalic and atraumatic. Significant edema to face and upper lip. No edema to uvula or posterior oropharynx. Pupils are equal, round, and reactive to light. Extraocular eye muscles are intact, and sclera are anicteric. Nose - moist nasal mucosa without discharge. Mouth - moist buccal mucosa. Oropharynx is nonerythematous and there is no tonsillar exudate or edema noted. Neck: Supple; no JVD, nuchal rigidity, cervical lymphadenopathy. There is no auscultated stridor. Heart: Regular rate and rhythm. There is a normal S1 and S2 with no murmurs, clicks, or gallops appreciated. Lungs: Clear to auscultation bilaterally with no wheezes, rales, or rhonchi. Chest: Healing burn on left lateral chest wall. Abdomen: Soft, completely nontender, nondistended, with good bowel sounds. There are no palpable pulsatile masses or hepatosplenomegaly. There is no guarding, rigidity, or rebound noted. Extremities: No evidence of cyanosis, clubbing, or edema. There are easily palpable peripheral pulses. Left upper extremity has one large wheel. Skin: warm and dry with good turgor and no rashes. Medical Decision & Procedures Laboratory Results 02/26/17 23:16 Red Blood Count 5.08, Mean Corpuscular Volume 89.2, Mean Corpuscular Hemoglobin 30.3, Mean Corpuscular Hemoglobin Concent 34.0, Mean Platelet Volume 10.7, Neutrophils (%) (Auto) 40.5, Lymphocytes (%) (Auto) 45.3, Monocytes (%) (Auto) 7.6, Eosinophils (%) (Auto) 5.8, Basophils (%) (Auto) 0.7, Neutrophils # (Auto) 3.29, Lymphocytes # (Auto) 3.69, Monocytes # (Auto) 0.62, Eosinophils # (Auto) 0.47, Basophils # (Auto) 0.06 02/26/17 23:16 Test 02/26/17 23:16 White Blood Count 8.14 K/uL (4.8-10.8) Red Blood Count 5.08 M/uL (4.7-6.1) Hemoglobin 15.4 g/dL (14.0-18.0) Hematocrit 45.3 % (42-52) Mean Corpuscular Volume 89.2 fL (80-100) Mean Corpuscular Hemoglobin 30.3 pg (25-34) Mean Corpuscular Hemoglobin Concent 34.0 g/dl (32-36) Platelet Count 294 K/uL (130-400) Mean Platelet Volume 10.7 fL (7.4-10.4) Neutrophils (%) (Auto) 40.5 % Lymphocytes (%) (Auto) 45.3 % Monocytes (%) (Auto) 7.6 % Eosinophils (%) (Auto) 5.8 % Basophils (%) (Auto) 0.7 % Neutrophils # (Auto) 3.29 K/uL (1.4-6.5) Lymphocytes # (Auto) 3.69 K/uL (1.2-3.4) Monocytes # (Auto) 0.62 K/uL (0.11-0.59) Eosinophils # (Auto) 0.47 K/uL (0-0.5) Basophils # (Auto) 0.06 K/uL (0-0.2) RDW Standard Deviation 41.6 fL (36.4-46.3) RDW Coefficient of Variation 12.9 % (11.5-14.5) Immature Granulocyte % (Auto) 0.1 % Immature Granulocyte # (Auto) 0.01 K/uL (0.00-0.02) Anion Gap 8.0 mmol/L (3-11) Estimated GFR () 74.3 Estimated GFR (Non- 64.1 BUN/Creatinine Ratio 18.3 (10-20) Calcium Level 8.8 mg/dl (8.5-10.1) Laboratory results per my review. Medications Administered Medications (Trade) Dose Ordered Sig/Duc Route Start Time Stop Time Status Last Admin Dose Admin Methylprednisolone Sodium Succinate (Solu-Medrol IV) 125 mg STK-MED ONCE .ROUTE 02/26/17 23:09 02/26/17 23:10 DC 02/26/17 23:21 125 MG Diphenhydramine HCl (Benadryl Inj) 50 mg STK-MED ONCE .ROUTE 02/26/17 23:09 02/26/17 23:10 DC 02/26/17 23:21 50 MG Ranitidine HCl (zANTac IV) 50 mg STK-MED ONCE .ROUTE 02/26/17 23:10 02/26/17 23:11 DC 02/26/17 23:21 50 MG Epinephrine (Epipen) 0.3 mg STK-MED ONCE .ROUTE 02/26/17 23:11 02/26/17 23:12 DC 02/26/17 23:21 0.3 MG Sodium Chloride 1,000 ml @ 80 mls/hr [id number] IV 02/27/17 01:02 03/29/17 01:01 02/27/17 02:51 80 MLS/HR Procedure 2309: Ordered Benadryl Inj 50 mg IV, Solu-Medrol IV 125 mg IV. 2310: Ordered Ranitidine HCl 50 mg IV. 2311: Ordered EpiPen 0.3 mg IM. 1 Liter of Normal Saline Solution was ordered. ED Course 2307: Past medical records reviewed. The patient was quickly evaluated in room A2. A complete history and physical exam was performed. 2 large bore IV locks were initiated. I spoke with the patient's on the phone about the seriousness of his situation. She will come to the emergency department immediately. 2309: Ordered Benadryl Inj 50 mg IV, Solu-Medrol IV 125 mg IV. 2310: Ordered Ranitidine HCl 50 mg IV. 2311: Ordered EpiPen 0.3 mg IM. 2327: I reevaluated the patient and the right side if his lip has decreased in size. His daughter showed me a picture of what he looked like at 2100 and he was much worse off than when he came in. 2338: I reevaluated the patient and he was doing a little better. His daughter explained that he had woken up with numbness in his left hand that has subsided throughout the day. 2352: I reevaluated the patient and his is here. I spoke with her about the situation. The patient says he is breathing more easily. I explained to him that he would never be able to take that blood pressure medication again and he seemed confused by this. I asked his family if that was his normal mental state and they said yes, that this was normal for him. 0023: I reevaluated the patient. The swelling seems to be much less and he appears more comfortable. His stats are stable. 0028: I discussed the patient's case with Dr. Garcia- the cobbler sole. 0053: I discussed the patient's case with Faustino Christine PA-C. 0055: Discussed the patient's case with Dr. Jasiel Salazar. The patient will be evaluated for further management. Medical Decision This is a 51-year-old male patient who presents to the emergency department with difficulty swallowing, difficulty breathing, and significant facial swelling. Differential diagnoses include angioedema vs anaphylaxis. LABS: Normal white count Stable H&H Glucose 95 Potassium slightly low at 3.2 BUN 24 Creatine 1.3 This is a 51-year-old male patient who presents to the emergency for multiple episodes and onset of upper lip swelling, facial swelling and shortness of breath. The patient does take an BONNY inhibitor. I felt this was most likely is induced angioedema. However, the patient did get some relief of the symptoms with IV site Medrol, IV Benadryl, IV Zantac, and IM epinephrine. This would suggest that this may not have been complete angioedema but more likely an allergic reaction. I discussed the case with the cobbler sole as well as the [facility] hospitalist and the patient will be admitted to the ICU. Consults Time Called: 22 Consulting Physician: Dr. Garcia- the cobbler sole Returned Call: 27 I discussed the patient's case with Dr. Garcia- the cobbler sole. Additional Consults: Time Called: 46 Consulted Physician: Faustino Christine PA-C Returned Call: 52 Additional Comments: I discussed the patient's case with Faustino Christine PA-C. Time Called: 48 Consulted Physician: Dr. Jasiel Salazar Returned Call: 54 Additional Comments: Discussed the patient's case with Dr. Jasiel Salazar. The patient will be evaluated for further management. Impression Primary Impression: Angioedema Critical Care I have personally spent greater than 60 minutes of critical care time in the direct management of this patient. This includes bedside care, interpretation of diagnostic studies, and testing, discussion with consultants, patient, and family members, and other required patient management activities. This 60 minutes is in excess of all separately billable procedures. Scribe Attestation The scribe's documentation has been prepared under my direction and personally reviewed by me in its entirety. I confirm that the note above accurately reflects all work, treatment, procedures, and medical decision making performed by me. Departure Information Dispostion Being Evaluated By Hospitalist Referrals Sunita Wei PA-C (PCP) Patient Instructions [facility] Problem Qualifiers Primary Impression: Angioedema Encounter type: initial encounter Qualified Codes: T78.3XXA - Angioneurotic edema, initial encounter
[2017-02-27] MEDS ORDERED: INFLUENZA VIRUS QUAD VACCINE 0.5 ML SYR IM. ONE (05:00)
[2017-02-27] MEDS ORDERED: INFLUENZA ADMINISTRATION CHARGE ONE (05:00)
[2017-02-27 05:55] LABS: BASO % 0.2 %; BASO ABS # 0.01 K/uL (0-0.2); COMPLETE YES; EOS % 0.2 %; LYMPH % 11.6 %; LYMPH ABS # 0.72 K/uL (1.2-3.4); MEAN CORPUSCULAR HEMOGLOBIN 30.9 pg (25-34); MEAN CORPUSCULAR HGB CONC 34.8 g/dl (32-36); MEAN PLATELET VOLUME 10.2 fL (7.4-10.4); MONO % 0.8 %; NEUT % 87.2 %; PLATELET COUNT 255 K/uL (130-400); RED BLOOD COUNT 4.72 M/uL (4.7-6.1); WHITE BLOOD COUNT 6.19 K/uL (4.8-10.8)
[2017-02-27 06:00] LABS: PROTHROMBIN TIME (PATIENT) 10.9 SECONDS (9.0-12.0)
[2017-02-27] MEDS ORDERED: HEPARIN SOD 5000 UNIT/0.5 ML CARP SQ SCH (06:00)
[2017-02-27 06:44] LABS: BUN/CREATININE RATIO 16.7 (10-20); CALCIUM 8.7 mg/dl (8.5-10.1); CREATININE 1.3 mg/dl (0.60-1.40); MAGNESIUM 1.9 mg/dl (1.8-2.4); PHOSPHORUS 0.4 mg/dl (2.5-4.9); POTASSIUM 3.9 mmol/L (3.5-5.1); THYROID STIMULATING HORMONE 2.05 uIu/ml (0.300-4.500)
[2017-02-27] MEDS ORDERED: POTASSIUM PHOS 3 MMOL/1 ML INFUSION IV STA (06:46)
[2017-02-27] MEDS ORDERED: POTASSIUM PHOSPHATE INJ 30 MMOL in SODIUM CHLORIDE 0.9% 500ML 500 ML IV ONE (07:00)
[2017-02-27] MEDS ORDERED: RANITIDINE IV 50 MG in DEXTROSE 5% 100ML 100 ML IV SCH (08:00)
[2017-02-27] MEDS ORDERED: LEVOTHYROXINE SODIUM INJ 12.5 MCG in SYRINGE 0 ML IV SCH (09:00)
[2017-02-27] MEDS ORDERED: METHYLPREDNISOLONE IV 40 MG in SYRINGE 0 ML IV SCH (12:00)
[2017-02-27] MEDS ORDERED: PRED50TA PO (14:01)
--- NOTE | 2017-02-27 14:12 | Discharge Instructions ---
Discharge Instructions Date of Service Feb 27, 2017. Admission Reason for Admission: Angioedema Discharge Discharge Diagnosis / Problem: Angioedema Discharge Goals Goal(s): Decrease discomfort, Improve function, Increase independence, Improve disease control, Improve nutritional status, Learn about illness Activity Recommendations Activity Limitations: per Instructions/Follow-up section . Instructions / Follow-Up Instructions / Follow-Up You were admitted to the hospital because of Angioedema. Severe Angioedema can be life threatening because it can block your airway. You were admitted to the ICU for observation and your treatment included intravenous Benadryl and Steroids. The continued treatment involves a prolonged course of Steroids and avoiding the trigger that caused your angioedema. We believe that the Angioedema is related to your Lisinopril use or (less likely) can be related to NSAID (anti inflammatory use). Information on Angioedema will be included in your discharge information. Please read this information carefully. You are being discharged on a 5 day course of Prednisone. Please take one pill daily as directed. You can take your first dose tomorrow morning (02/28/2017). Information on Prednisone will be attached to your discharge. DO NOT TAKE your lisinopril. Lisinopril is a medication that is known to cause angioedema. DO NOT TAKE your Naproxen. Naproxen is an NSAID (Non Steroidal Anti Inflammatory Medication). NSAIDS are a lesser known cause of angioedema. Please do not take any NSAIDS until you follow up with your primary care provider. The most common NSAIDS are Aspirin, Celebrex, Motrin, Advil, Ibuprofen, Naproxen, Diclofenac. Return to the ER if you re-experience any of your symptoms including swelling in your face or difficulty breathing. Follow up with your PCP, Dr. Rojas, on WednesdayMarch 02 at 10:45am. Current Hospital Diet Patient's current hospital diet: Regular Diet Discharge Diet Recommended Diet: Regular Diet Pending Studies Studies pending at discharge: no Medical Emergencies . Who to Call and When: Medical Emergencies: If at any time you feel your situation is an emergency, please call 911 immediately. . Non-Emergent Contact Non-Emergency issues call your: Primary Care Provider . . "Provider Documentation" section prepared by nAgel Babin. . Train Attendant Recommendations Train Attendant Recommendations: Resident Physician Supervision Note: Dr. Babin was resident physician during care of patient. I separately evaluated patient and did history and exam. I discussed the case with the resident and generally agree with the findings and plan. Complete resolution of the patient's angioedema. I counseled the patient that he could not be placed back on lisinopril. He is to follow-up with his primary care provider for other antihypertensive medication treatment regimens. I also explained the patient should be careful using NSAIDs as there is a remote possibility that this could have been triggered by an NSAID. Documented By: Christiano Garcia, DO [facility] Core Measure Inpt [facility] Proph given/why not?: Unfractionated heparin SQ, SCD's Resident Involvement: Resident Care Provided Care Provided: Adult Hospital Medicine
--- NOTE | 2017-02-27 14:49 | Discharge Summary ---
Discharge Summary Date of Service Feb 27, 2017. Discharge Summary Admission Date: Feb 27, 2017 at 01:25 Discharge Date: Feb 27, 2017 Discharge Disposition: Home Principal Diagnosis: Angioedema Medication Reconciliation New Medications: Prednisone (Prednisone) 50 Mg Tab 1 TAB PO DAILY for 5 Days, #5 TAB Continued Medications: Acetaminophen/Codeine (Tylenol W/Codeine #3) 300 Mg/30 Mg Tab 1-2 TABS PO Q6H PRN for Pain, #15 TAB For Initial Treatment Amlodipine (Norvasc) 10 Mg Tab 10 MG PO DAILY, TAB Ascorbic Acid (Ascorbic Acid) 1,000 Mg Tab 1000 MG PO DAILY B-Complex Vitamins (Vitamin B Complex) 1 Tab Tab 1 TAB PO DAILY Chlorthalidone (Chlorthalidone) Unknown Strength Tab 1 TAB PO DAILY Cholecalciferol (Vitamin D 1000 Unit) 1,000 Unit Cap 1000 INTER.UNIT PO DAILY, CAP Glucosamine Sulfate (Glucosamine) 1,000 Mg Tab 2000 MG PO DAILY, TAB Levothyroxine Sodium (Levothyroxine Sodium) 25 Mcg Tab 25 MCG PO DAILY, TAB Mupirocin (Bactroban 2% Oint) 66 Appln/22 Gm Oint 1 APPLN EXT BID, #1 TUBE Ranitidine (Zantac) 150 Mg Tab 150 MG PO BID, TAB Tramadol (Ultram) 50 Mg Tab 50 MG PO Q8H PRN for Pain, TAB Discontinued Medications: Lisinopril (Zestril) 40 Mg Tab 40 MG PO DAILY, TAB Naproxen Sodium (Naproxen Sodium) 220 Mg Cap 220 MG PO AMPM TAKE WITH MEAL Admission Information HPI (per Admitting provider): Patient is a 51 yr male with PMH of HTN, Hypothyroidism presents with history of lip swelling, SOB and dysphagia which started few hours prior to ED visit. Patient is currently distressed and is a very poor historian and most of the history is obtained from patient's family, old records and ED staff. Patient started to notice upper lip swelling few hours ago and ate cheese steak and went to bed and later woke up with swelling of lower lip, difficulty breathing and had trouble swallowing. Patient s on lisinopril for HTN. He received Epinephrine, Benadryl, solumedrol and ranitidine in ED. Currently he denies chest pain, SOB and is saturating 96% on 2L NC. Family denies any history of similar symptoms in the past or any fever, chills, nausea, vomiting, abd pain, diarrhea, dysuria, rash. He had history of allergy to bee stings and Penicillin , but denies any recent exposure. Physical Exam (per Admitting): General Appearance: WD/WN, + mild distress Head: normocephalic, atraumatic, + pertinent finding (Edema of face and upper lip. ) Eyes: normal inspection, PERRL, EOMI ENT: normal ENT inspection, hearing grossly normal Neck: supple, trachea midline Respiratory/Chest: lungs clear, normal breath sounds, no accessory muscle use Cardiovascular: regular rate, rhythm, no edema, no murmur Abdomen/GI: normal bowel sounds, non tender, soft Back: normal inspection Extremities/Musculoskelatal: normal inspection, no pedal edema Neurologic/Psych: alert, oriented x 3, + pertinent finding (Anxious, distressed, grossly no focal deficits) Skin: normal color, warm/dry Hospital Course ANGIOEDEMA: -upper airway/lips but patient was able to maintain airway and secretions throughout despite associated SOB and dysphagia -most likely secondary to Lisinopril; no prior history of such symptoms -was observed in ICU and has improved to where he is able to eat and drink without any difficulty -on Benadryl, Ranitidine, and Solumedrol; was also given Epinephrine in the ER -lisinopril stopped and placed on allergy list -oxygen PRN -IV fluids, now off -ICU Equipment Oiler consulted, appreciate management ELECTROLYTE DERANGEMENTS: -hypophosphatemia and hypokalemia -recheck and replete HTN: -initially had mild hypotension -home meds held -BP now climbing, encouraged patient to resume chlorthalidone but to stop and discard all lisinopril -may need addition of a second BP medication but can be evaluated at outpatient follow up visit HYPOTHYROIDISM: -continue Levothyroxine -TSH and free T4 normal Total time spent on discharge = 35 This includes examination of the patient, discharge planning, medication reconciliation, and communication with other providers. Discharge Instructions Per patient discharge instructions. Allergy to lisinopril listed in system Additional Copies To Tomasz Rojas III, M.D.
== END 2017-02-27 15:10 | disposition home or self-care (01) | DRG 916 ==
LOC: C.EDB 23:00 → C.MSICU 02-27 01:25 → ENRESERV 02-27 01:38
PROVIDERS: ADMIT Internal Medicine; ATTEND Internal Medicine
DX: T78.3XXA Angioneurotic edema, initial encounter (principal); T46.4X5A Adverse effect of angiotensin-converting-enzyme inhibitors, initial encounter; E87.6 Hypokalemia; K21.9 Gastro-esophageal reflux disease without esophagitis; I10 Essential (primary) hypertension; E03.9 Hypothyroidism, unspecified; Z51.81 Encounter for therapeutic drug level monitoring; Z79.899 Other long term (current) drug therapy; X58.XXXA Exposure to other specified factors, initial encounter